=== PATIENT | female | born 1985 | race Two or more races ===

== ENCOUNTER 2017-01-26 18:44 | Emergency (ER) | payer OTHER ==
[~2017-01-26] VITALS: Ht 152.4 cm; Wt 78.0 kg
[2017-01-26 18:52] VITALS: Ht 152.4 cm; Wt 78.0 kg
[2017-01-26] MEDS ORDERED: IBUP-1542 PO (20:40)
[2017-01-26] MEDS ORDERED: AMOX1TAB10 PO (20:40)
[2017-01-26] MEDS ORDERED: DIPHTH/TET/ACEL PERTUSS (ADULT) 0.5 ML VIAL IM* ONE (21:00)
--- NOTE | 2017-01-26 21:20 | ERD ---
ER Documentation Chief Complaint Date/Time DATE: 01/26/17 TIME: 21:16 Chief Complaint dog bite on Left calf HPI 31-year-old female presents here to emergency department for complaints of a dog bite wound on the left calf area today. Patient is complaining of pain sharp pain 4/10 scale, as was upon touching the area. Patient denies any discharge from the area. Patient denies any fever or chills. ROS All systems reviewed and are negative except as per history of present illness. Medications Home Meds Active Scripts Ibuprofen* (Motrin*) 600 Mg Tab, 600 MG PO Q6H Y for PAIN AND OR ELEVATED TEMP, #30 TAB Prov:CHARLEE FRANZ NP 01/26/17 Amoxicillin/Potassium Clav (Amox-Clav 875-125 mg Tablet) 875-125 mg Tab, 1 TAB PO BID for 10 Days, #20 TAB Prov:CHARLEE FRANZ NP 01/26/17 Reported Medications [none] Unknown Strength No Conflict Check 01/26/17 Allergies Allergies: Coded Allergies: No Known Drug Allergy (Verified Allergy, Mild, 04/21/08) PMhx/Soc Medical and Surgical Hx: pt denies Medical Hx, pt denies Surgical Hx Hx Alcohol Use: No Hx Substance Use: No Hx Tobacco Use: No Smoking Status: Never smoker Physical Exam Vitals Vital Signs Date Time Temp Pulse Resp B/P Pulse Ox O2 Delivery O2 Flow Rate FiO2 01/26/17 18:52 99.5 78 18 102/62 98 Physical Exam GENERAL: The patient is well developed and appropriate for usual state of health, in no apparent distress. CHEST: Clear to auscultation bilaterally. There are no rales, wheezes or rhonchi. HEART: Regular rate and rhythm. No murmurs, clicks, rubs or gallops. No S3 or S4. ABDOMEN: Soft, nontender and nondistended. Good bowel sounds. No rebound or guarding. No gross peritonitis. No gross organomegaly or masses. No Swift sign or McBurney point tenderness. BACK: No midline or flank tenderness. EXTREMITIES: Equal pulses bilaterally. There is no peripheral clubbing, cyanosis or edema. No focal swelling or erythema. Full range of motion. Grossly neurovascularly intact. NEURO: Alert and oriented. Cranial nerves 2-12 intact. Motor strength in all 4 extremities with 5/5 strength. Sensation grossly intact. Normal speech and gait. SKIN: Noted abrasion and puncture wound on the left leg. There is no apparent rash or petechia. The skin is warm and dry. HEMATOLOGIC AND LYMPHATIC: There is no evidence of excessive bruising or lymphedema. No gross cervical, axillary, or inguinal lymphadenopathy. Results 24 hrs Current Medications Medications (Trade) Dose Ordered Sig/Mateo Route PRN Reason Start Time Stop Time Status Last Admin Dose Admin Diphtheria/ Tetanus/Acell Pertussis (Adacel) 0.5 ml ONCE ONCE IM* 01/26/17 21:00 01/26/17 21:01 DC 01/26/17 20:51 Tdap was given to prevent tetanus. Patient tolerated medication well. Procedures/MDM Medical decision making: Patient symptoms most likely is consistent with dog bite wound, no symptoms of any necrosis, no symptoms of any joint involvement, no symptoms of neurovascular compromise. Prescription was given for Augmentin, ibuprofen, tetanus vaccinations were also updated here in emergency department, is advised to follow-up with primary care doctor in 2 days for wound check, patient was advised to return to emergency department for any worsening symptoms. Disposition: Home. Stable. Departure Diagnosis: Primary Impression: Dog bite Encounter type: initial encounter Qualified Code: W54.0XXA - Dog bite, initial encounter Condition: Stable Patient Instructions: Dog Bite CHARLEE FRANZ NP Jan 26, 2017 21:20
== END 2017-01-26 20:54 | disposition home or self-care (01) ==
LOC: FTE 18:44
DX: S81.851A Open bite, right lower leg, initial encounter (principal); W54.0XXA Bitten by dog, initial encounter; Y92.9 Unspecified place or not applicable; Z23 Encounter for immunization
CPT/HCPCS: 90471; Z7502